=== PATIENT | male | born 1970 | race Hispanic/Latino ===

== ENCOUNTER 2020-03-30 12:43 | Emergency (ER) | payer BC, OTHER ==
[2020-03-30 13:36] LABS: #Lymphocytes 1.4 thou/uL (1.20-3.40); #Monocytes 0.5 thou/uL (0.11-0.59); #Neutrophils 3.9 thou/uL (1.40-6.50); %Basophils 0.8 % (0.0-1.0); %Eosinophils 0.5 % (0.0-10.0); %Lymphocytes 23.2 % (21.0-51.0); %Monocytes 9.2 % (0.0-10.0); %Neutrophils 66.4 % (42.0-75.0); Hemoglobin 15.5 g/dL (14.0-18.0); Mean Corpuscular HGB CONC 35.1 g/dL (32.0-36.0); Mean Corpuscular Hemoglobin 32.6 pg (27.0-31.0); Mean Corpuscular Volume 92.8 fL (78.0-98.0); Mean Platelet Volume 6.9 fL (7.4-10.4); Platelet Count 196 thou/uL (130-400); Red Blood Cell (RBC) Count 4.75 mill/uL (4.70-6.10); White Blood Cell (WBC) Count 5.9 thou/uL (4.8-10.8)
--- NOTE | 2020-03-30 13:42 | RAD ---
PORTABLE CHEST: 03/30/20 HISTORY: COVID positive. Patient has shortness of breath. Heart size and mediastinum are within normal limits. Lungs are clear of any definitive infiltrative p rocess questionably there are some increased markings in the left base. IMPRESSION: No definite infiltrative process. POS: [facility]
[2020-03-30 13:57] LABS: ALT (SGPT) 25 U/L (8-55); AST (SGOT) 26 U/L (5-34); Albumin 4.3 g/dL (3.5-5.0); Alkaline Phosphatase 112 U/L (40-110); Anion Gap 13 mmol/L (10-20); BUN (Urea Nitrogen) 13 mg/dL (8.9-20.6); Bilirubin, Total 0.8 mg/dL (0.2-1.2); Calc. Creatinine Clearance 0 mL/min (70-130); Calcium 9.1 mg/dL (7.8-10.44); Carbon Dioxide 23 mmol/L (22-29); Chloride 104 mmol/L (98-107); Estimated GFR-MDRD 74; Globulin 3.7 g/dL (2.4-3.5); Glucose 107 mg/dL (70-105); Potassium 3.4 mmol/L (3.5-5.1); Sodium 137 mmol/L (136-145)
== END 2020-03-30 14:25 | disposition home or self-care (01) ==
LOC: ERS 12:43
DX: U07.1 COVID-19 (principal); R05 Cough; I10 Essential (primary) hypertension; E11.9 Type 2 diabetes mellitus without complications; E78.5 Hyperlipidemia, unspecified; Z79.899 Other long term (current) drug therapy; Z79.84 Long term (current) use of oral hypoglycemic drugs
CPT/HCPCS: 71045; 80053; 85025; 93005

== ENCOUNTER 2020-04-01 17:32 | Emergency (ER) | payer BC, OTHER ==
[2020-04-01] MEDS ORDERED: Acetaminophen 500 MG TAB ONE (18:45)
--- NOTE | 2020-04-01 19:21 | RAD ---
PORTABLE CHEST ONE VIEW: 04/01/20 at 7:03 p.m. HISTORY: Cough and fever. Positive COVID three days ago, shortness of breath. COMPARISON: 03/30/20 The heart size is normal. No focal areas of consolidation, pneumothoraces or pleural effusions are se en. IMPRESSION: No acute process. POS: OFF
== END 2020-04-01 19:42 | disposition home or self-care (01) ==
LOC: ERS 17:32
DX: U07.1 COVID-19 (principal); R05 Cough; I10 Essential (primary) hypertension; E11.9 Type 2 diabetes mellitus without complications; E78.5 Hyperlipidemia, unspecified; Z79.84 Long term (current) use of oral hypoglycemic drugs; Z79.899 Other long term (current) drug therapy
CPT/HCPCS: 71045